=== PATIENT | female | born 1995 | race Caucasian/White ===

== ENCOUNTER 2023-09-11 20:50 | Emergency (ER) | payer OTHER ==
[~2023-09-11] VITALS: Ht 167.6 cm; Wt 70.3 kg
[2023-09-11 21:27] VITALS: BP 143/81; TEMP 98.5; O2SAT 98
[2023-09-11] MEDS ORDERED: CYCLOBENZAPRINE 10 MG TABLET ONE (22:08)
[2023-09-11] MEDS ORDERED: IBUPROFEN 600 MG TABLET ONE (22:08)
[2023-09-11] MEDS ORDERED: ACETAMINOPHEN ES 500 MG TABLET ONE (22:08)
[2023-09-11] MEDS: IBUPROFEN 600 MG TABLET PO ONE (22:14)
[2023-09-11] MEDS: ACETAMINOPHEN ES 500 MG TABLET PO ONE (22:14)
[2023-09-11] MEDS: CYCLOBENZAPRINE 10 MG TABLET PO ONE (22:14)
[2023-09-11] MEDS: LIDOCAINE 5% (PATCH) 1 EA PATCH TP ONE (22:15)
[2023-09-11] MEDS ORDERED: ACET-2605 PO (22:50)
[2023-09-11] MEDS ORDERED: CYCL5TAB PO (22:50)
[2023-09-11] MEDS ORDERED: IBUP-1955 PO (22:50)
== END 2023-09-11 22:59 | disposition home or self-care (01) ==
LOC: ER 21:40
DX: M54.2 Cervicalgia (principal); M54.6 Pain in thoracic spine; V89.2XXA Person injured in unspecified motor-vehicle accident, traffic, initial encounter; Y93.89 Activity, other specified; Y92.89 Other specified places as the place of occurrence of the external cause; Y99.8 Other external cause status